=== PATIENT | male | born 1960 | race Caucasian/White ===

== ENCOUNTER 2018-06-02 08:13 | Outpatient (RCR) | payer OTHER, SELFPAY | END 2018-07-21 12:56 | disposition home or self-care (01) | LOC: PT 08:13 | PROVIDERS: PCP Family Medicine; Visit Provider Internal Medicine | DX: Z95.5 Presence of coronary angioplasty implant and graft (principal) | CPT/HCPCS: 93798 ==

== ENCOUNTER → 2018-06-02 10:57 | Outpatient (CLI) | payer OTHER, SELFPAY ==
[2018-06-02 13:39] LABS: Alanine Aminotransferase 101 U/L (12-78); Albumin Level 3.8 gm/dL (3.4-5.0); Alkaline Phosphatase 55 U/L (46-116); Anion Gap 13.2 mEq/L (5-15); Aspartate Amino Transferase 61 U/L (15-37); Bilirubin,Total 0.4 mg/dL (0.2-1.0); Blood Urea Nitrogen 8 mg/dL (7-18); Calcium 9.3 mg/dL (8.5-10.1); Carbon Dioxide 24 mmol/L (21.0-32.0); Chloride 92 mmol/L (98-107); Chol/HDL Ratio 4.7 (1-3.5); Cholesterol 137 mg/dL (140-200); Creatinine,Serum 0.71 mg/dL (0.70-1.30); Estimated Glomerular Filt Rate 115 ml/min (>60); GFR (African American) 139 ML/MIN (>60); Glucose 77 mg/dL (74-106); HDL Cholesterol 29 mg/dL (27-67); LDL Cholesterol 70 mg/dL (0-130); Potassium 5.2 mmoL/L (3.5-5.1); Sodium 124 mmol/L (136-145); Total Protein,Serum 8.3 gm/dL (6.4-8.2); Triglycerides 188 mg/dL (30-200); VLDL Cholesterol 38 mg/dL (0-40)
[2018-06-02 18:27] LABS: Bilirubin,Direct 0.1 mg/dL (0.0-0.2); Bilirubin,Indirect 0.3 mg/dL (0.0-0.9)
== END ==
PROVIDERS: Visit Provider Internal Medicine
DX: I25.10 Atherosclerotic heart disease of native coronary artery without angina pectoris (principal); I11.9 Hypertensive heart disease without heart failure; I10 Essential (primary) hypertension; E78.5 Hyperlipidemia, unspecified; F17.200 Nicotine dependence, unspecified, uncomplicated
CPT/HCPCS: 36415; 80048; 80061; 80076

== ENCOUNTER → 2018-06-10 10:00 | Outpatient (CLI) | payer OTHER, SELFPAY ==
[2018-06-10 10:59] LABS: Alanine Aminotransferase 109 U/L (12-78); Albumin Level 3.7 gm/dL (3.4-5.0); Alkaline Phosphatase 56 U/L (46-116); Anion Gap 14.4 mEq/L (5-15); Aspartate Amino Transferase 60 U/L (15-37); Bilirubin,Direct 0.1 mg/dL (0.0-0.2); Bilirubin,Indirect 0.2 mg/dL (0.0-0.9); Bilirubin,Total 0.3 mg/dL (0.2-1.0); Blood Urea Nitrogen 9 mg/dL (7-18); Calcium 9.2 mg/dL (8.5-10.1); Carbon Dioxide 24 mmol/L (21.0-32.0); Chloride 98 mmol/L (98-107); Chol/HDL Ratio 4.6 (1-3.5); Cholesterol 160 mg/dL (140-200); Creatinine,Serum 0.98 mg/dL (0.70-1.30); Estimated Glomerular Filt Rate 79 ml/min (>60); GFR (African American) 96 ML/MIN (>60); Glucose 93 mg/dL (74-106); HDL Cholesterol 35 mg/dL (27-67); LDL Cholesterol 106 mg/dL (0-130); Potassium 5.4 mmoL/L (3.5-5.1); Sodium 131 mmol/L (136-145); Total Protein,Serum 8.1 gm/dL (6.4-8.2); Triglycerides 96 mg/dL (30-200); VLDL Cholesterol 19 mg/dL (0-40)
== END ==
PROVIDERS: Visit Provider Physician Assistant
DX: I25.10 Atherosclerotic heart disease of native coronary artery without angina pectoris (principal); I11.9 Hypertensive heart disease without heart failure; I25.2 Old myocardial infarction; E78.5 Hyperlipidemia, unspecified; F17.200 Nicotine dependence, unspecified, uncomplicated
CPT/HCPCS: 36415; 80048; 80061; 80076

== ENCOUNTER → 2018-06-16 09:03 | Outpatient (CLI) | payer OTHER, SELFPAY ==
[2018-06-16 09:42] LABS: Alanine Aminotransferase 133 U/L (12-78); Albumin Level 3.9 gm/dL (3.4-5.0); Alkaline Phosphatase 62 U/L (46-116); Anion Gap 11.5 mEq/L (5-15); Aspartate Amino Transferase 76 U/L (15-37); Bilirubin,Direct 0.2 mg/dL (0.0-0.2); Bilirubin,Indirect 0.3 mg/dL (0.0-0.9); Bilirubin,Total 0.5 mg/dL (0.2-1.0); Blood Urea Nitrogen 9 mg/dL (7-18); Calcium 9.3 mg/dL (8.5-10.1); Carbon Dioxide 27 mmol/L (21.0-32.0); Chloride 97 mmol/L (98-107); Creatine Kinase 200 U/L (39-308); Creatinine,Serum 1.02 mg/dL (0.70-1.30); Estimated Glomerular Filt Rate 76 ml/min (>60); GFR (African American) 91 ML/MIN (>60); Glucose 105 mg/dL (74-106); Potassium 5.5 mmoL/L (3.5-5.1); Sodium 130 mmol/L (136-145); Total Protein,Serum 8.4 gm/dL (6.4-8.2)
== END ==
PROVIDERS: Visit Provider Physician Assistant
DX: I25.10 Atherosclerotic heart disease of native coronary artery without angina pectoris (principal); I11.9 Hypertensive heart disease without heart failure; I25.2 Old myocardial infarction; I10 Essential (primary) hypertension; E78.4 Other hyperlipidemia; R74.8 Abnormal levels of other serum enzymes
CPT/HCPCS: 36415; 80048; 80076; 82550

== ENCOUNTER → 2018-07-14 13:54 | Outpatient (CLI) | payer OTHER, SELFPAY ==
[2018-07-14 14:14] LABS: Basophils # 0.1 K/mm3 (0-0.2); Basophils % 0.8 % (0.1-2.0); Eosinophils # 0.3 K/mm3 (0.0-0.4); Eosinophils % 3.3 % (0.1-12.0); Hemoglobin 15.4 g/dL (14.1-18.0); Lymphocytes # 2.8 K/mm3 (0.7-4.5); Lymphocytes % 34.7 K/mm3 (10-50); Mean Corpuscular HGB Conc 32.7 g/dL (31.8-35.4); Mean Corpuscular Hemoglobin 32.7 pg (27.0-31.2); Mean Corpuscular Volume 100.2 fl (80-94); Mean Platelet Volume 7.2 fl (7.4-10.4); Neutrophils # 3.9 K/mm3 (1.8-7.8); Neutrophils % 49.1 % (37.0-80.0); Platelet Count 231 K/mm3 (142-424); Red Blood Count 4.69 M/mm3 (4.60-6.20); Red Cell Distribution Width 14.8 % (11.5-17.5)
[2018-07-14 15:07] LABS: Alanine Aminotransferase 130 U/L (12-78); Albumin Level 3.7 gm/dL (3.4-5.0); Alkaline Phosphatase 56 U/L (46-116); Anion Gap 10.9 mEq/L (5-15); Aspartate Amino Transferase 75 U/L (15-37); Bilirubin,Direct 0.2 mg/dL (0.0-0.2); Bilirubin,Indirect 0.5 mg/dL (0.0-0.9); Bilirubin,Total 0.7 mg/dL (0.2-1.0); Blood Urea Nitrogen 10 mg/dL (7-18); Calcium 9.2 mg/dL (8.5-10.1); Carbon Dioxide 28 mmol/L (21.0-32.0); Chloride 100 mmol/L (98-107); Creatinine,Serum 0.87 mg/dL (0.70-1.30); Estimated Glomerular Filt Rate 90 ml/min (>60); Free T4 (Free Thyroxine) 0.77 ng/dl (0.76-1.46); GFR (African American) 109 ML/MIN (>60); Glucose 91 mg/dL (74-106); Potassium 5.9 mmoL/L (3.5-5.1); Sodium 133 mmol/L (136-145); Thyroid Stimulating Hormone 2.84 uIU/ml (0.358-3.740); Total Protein,Serum 8.4 gm/dL (6.4-8.2)
[2018-07-17 19:11] LABS: Osmolality, Urine 351 mOsmol/kg (.)
== END ==
PROVIDERS: PCP Family Medicine; Visit Provider Nurse Practitioner Family
DX: E78.4 Other hyperlipidemia (principal); E87.1 Hypo-osmolality and hyponatremia; I11.9 Hypertensive heart disease without heart failure; I25.10 Atherosclerotic heart disease of native coronary artery without angina pectoris; R06.02 Shortness of breath; R74.8 Abnormal levels of other serum enzymes
CPT/HCPCS: 36415; 80048; 80076; 83935; 84439; 84443; 85025

== ENCOUNTER → 2018-07-17 12:42 | Outpatient (CLI) | payer OTHER, SELFPAY ==
--- NOTE | 2018-07-17 12:47 | CT_ITS ---
CT chest wo/w con HISTORY: Shortness of air, coronary artery disease ITS.REASON: s ORDERING PHYSICIAN: Quinn Peter MD PATIENT AGE: 58 years COMPARISON: None Technique: Axial images obtained without and with contrast. Sagittal and coronal reformats. All CT scans at the facility use one or more dose reduction, viz: automated exposure control, ma/kV adjustment per patient size (including targeted exams where dose is matched to indication, i.e. head), or iterative reconstruction technique. FINDINGS: There has been a prior CABG. There is normal heart size. Coronary artery calcifications and/or stents present. No evidence of pericardial effusion. There are few scattered small mediastinal lymph nodes. Mildly prominent node is present in the right hilum at 2 x 1.5 cm. No mediastinal or hilar mass. No evidence of aortic aneurysm or dissection. No central pulmonary embolus. Peripheral pulmonary arteries are not well opacified. There is a small hiatal hernia with mild thickening of the distal esophagus which may be seen with reflux esophagitis. There are mild centrilobular emphysematous changes. 3 mm noncalcified nodule present in the region of the right major fissure inferiorly. A 3 mm nodules present in the superior segment of left lower lobe nonspecific too small to characterize. A 4 mm subpleural nodules present within the left upper lobe laterally image #46. No suspicious pulmonary nodules No effusions or infiltrates. Upper abdominal images show small lymph nodes in the upper abdomen measuring up to 1.6 x 1.5 cm portal area. There is mild wedging of T12 and L1 which appears chronic. IMPRESSION: 1. Prior CABG with coronary artery calcifications. 2. Centrilobular emphysema. There are 3 noncalcified pulmonary nodules which are 4 mm or less. No suspicious pulmonary nodules are evident. 3. There is some mild right hilar and upper abdominal adenopathy etiology indeterminate. Consider 6 month follow-up to confirm short-term stability 4. Small hiatal hernia
== END ==
PROVIDERS: Visit Provider Internal Medicine
DX: R06.02 Shortness of breath (principal); R74.8 Abnormal levels of other serum enzymes; E78.4 Other hyperlipidemia; E87.1 Hypo-osmolality and hyponatremia; I11.9 Hypertensive heart disease without heart failure; I25.10 Atherosclerotic heart disease of native coronary artery without angina pectoris
CPT/HCPCS: 71270; Q9967

== ENCOUNTER → 2018-07-31 10:17 | Outpatient (CLI) | payer OTHER, SELFPAY ==
[2018-07-31 11:10] LABS: Alanine Aminotransferase 115 U/L (12-78); Albumin Level 3.7 gm/dL (3.4-5.0); Alkaline Phosphatase 57 U/L (46-116); Anion Gap 13.3 mEq/L (5-15); Aspartate Amino Transferase 64 U/L (15-37); Bilirubin,Direct 0.2 mg/dL (0.0-0.2); Bilirubin,Indirect 0.3 mg/dL (0.0-0.9); Bilirubin,Total 0.5 mg/dL (0.2-1.0); Blood Urea Nitrogen 11 mg/dL (7-18); Carbon Dioxide 26 mmol/L (21.0-32.0); Chloride 101 mmol/L (98-107); Creatinine,Serum 0.92 mg/dL (0.70-1.30); Estimated Glomerular Filt Rate 85 ml/min (>60); GFR (African American) 103 ML/MIN (>60); Glucose 98 mg/dL (74-106); Potassium 5.3 mmoL/L (3.5-5.1); Sodium 135 mmol/L (136-145); Total Protein,Serum 8.6 gm/dL (6.4-8.2)
== END ==
PROVIDERS: PCP Family Medicine; Visit Provider Urology
DX: R74.8 Abnormal levels of other serum enzymes (principal); I25.10 Atherosclerotic heart disease of native coronary artery without angina pectoris; E78.5 Hyperlipidemia, unspecified; E87.1 Hypo-osmolality and hyponatremia; F17.200 Nicotine dependence, unspecified, uncomplicated; I11.9 Hypertensive heart disease without heart failure
CPT/HCPCS: 36415; 80048; 80076

== ENCOUNTER → 2018-08-19 19:18 | Outpatient (REF) | payer OTHER, SELFPAY ==
[2018-08-19 20:23] LABS: Alanine Aminotransferase 133 U/L (12-78); Albumin Level 3.5 gm/dL (3.4-5.0); Alkaline Phosphatase 71 U/L (46-116); Amylase 78 U/L (25-125); Aspartate Amino Transferase 53 U/L (15-37); Bilirubin,Direct 0.2 mg/dL (0.0-0.2); Bilirubin,Indirect 0.3 mg/dL (0.0-0.9); Bilirubin,Total 0.5 mg/dL (0.2-1.0); Cholesterol 233 mg/dL (140-200); HDL Cholesterol 47 mg/dL (27-67); LDL Cholesterol 168 mg/dL (0-130); Lipase 154 u/L (73-393); Total Protein,Serum 8.7 gm/dL (6.4-8.2); Triglycerides 89 mg/dL (30-200); VLDL Cholesterol 18 mg/dL (0-40)
[2018-08-21 10:18] LABS: Hep A Ab, IgM Negative (Negative); Hepatitis B Core Antibody IgM Negative (Negative); Hepatitis B Surface Antigen Negative (Negative)
[2018-08-21 18:06] LABS: Hepatitis C Antibody >11.0 s/co ratio (0.0-0.9)
== END ==
LOC: LAB 19:18
PROVIDERS: PCP Nurse Practitioner Family; Visit Provider Nurse Practitioner Family
DX: R74.8 Abnormal levels of other serum enzymes (principal)
CPT/HCPCS: 80061; 80074; 80076; 82150; 83690

== ENCOUNTER → 2018-08-26 16:06 | Outpatient (CLI) | payer OTHER, SELFPAY ==
[2018-08-26 16:28] LABS: INR 1.01 (0.9-1.1); Prothrombin Time 10.4 seconds (9.4-11.8)
[2018-08-28 14:14] LABS: HIV Screen 4th Generation wRfx Non Reactive (Non Reactive)
[2018-08-30 10:09] LABS: Hepatitis C Genotype 1a (.)
== END ==
PROVIDERS: Visit Provider Nurse Practitioner Family
DX: B19.20 Unspecified viral hepatitis C without hepatic coma (principal)
CPT/HCPCS: 36415; 85610; 86703; 87902; G0432

== ENCOUNTER → 2018-09-01 10:00 | Outpatient (CLI) | payer OTHER, SELFPAY | PROVIDERS: Visit Provider Nurse Practitioner Family | DX: B19.20 Unspecified viral hepatitis C without hepatic coma (principal) | CPT/HCPCS: 36415; 87522 ==

== ENCOUNTER → 2019-11-09 11:44 | Outpatient (CLI) | payer OTHER, SELFPAY ==
[2019-11-09 13:18] LABS: Alanine Aminotransferase 127 U/L (12-78); Albumin Level 3.4 gm/dL (3.4-5.0); Alkaline Phosphatase 57 U/L (46-116); Aspartate Amino Transferase 64 U/L (15-37); Bilirubin,Direct 0.2 mg/dL (0.0-0.2); Bilirubin,Indirect 0.3 mg/dL (0.0-0.9); Bilirubin,Total 0.5 mg/dL (0.2-1.0); Chol/HDL Ratio 7.3 (1-3.5); Cholesterol 190 mg/dL (140-200); HDL Cholesterol 26 mg/dL (27-67); LDL Cholesterol 127 mg/dL (0-130); Total Protein,Serum 8.1 gm/dL (6.4-8.2); Triglycerides 184 mg/dL (30-200); VLDL Cholesterol 37 mg/dL (0-40)
== END ==
PROVIDERS: Visit Provider Urology
DX: E78.5 Hyperlipidemia, unspecified (principal); I10 Essential (primary) hypertension; I11.9 Hypertensive heart disease without heart failure; I25.10 Atherosclerotic heart disease of native coronary artery without angina pectoris; F17.200 Nicotine dependence, unspecified, uncomplicated; Z95.1 Presence of aortocoronary bypass graft
CPT/HCPCS: 36415; 80061; 80076

== ENCOUNTER → 2020-05-10 11:42 | Outpatient (CLI) | payer OTHER, SELFPAY ==
[2020-05-10 13:16] LABS: Bilirubin,Unconjugated 0.6 mg/dL (0.0-1.1)
[2020-05-10 13:17] LABS: Alanine Aminotransferase 126 U/L (12-78); Albumin Level 4.3 g/dl (3.5-5.0); Alkaline Phosphatase 64 U/L (38-126); Aspartate Amino Transferase 98 U/L (17-59); Bilirubin,Direct 0.2 mg/dl (0.0-0.4); Bilirubin,Indirect 0.7 mg/dL (0.0-0.9); Bilirubin,Total 0.9 mg/dl (0.2-1.3); Chol/HDL Ratio 3.7 (1-3.5); Cholesterol 133 mg/dl (140-200); HDL Cholesterol 36 mg/dl (40-60); Total Protein,Serum 8.4 g/dl (6.3-8.2); Triglycerides 199 mg/dl (30-150); VLDL Cholesterol 40 mg/dL (0-40)
[2020-05-10 13:28] LABS: Direct LDL Cholesterol 73.67 mg/dL (100-129)
== END ==
PROVIDERS: Visit Provider Physician Assistant
DX: E78.49 Other hyperlipidemia (principal); I10 Essential (primary) hypertension; I25.10 Atherosclerotic heart disease of native coronary artery without angina pectoris; I25.2 Old myocardial infarction; Z95.1 Presence of aortocoronary bypass graft
CPT/HCPCS: 36415; 80061; 80076